=== PATIENT | male | born 1975 | race Caucasian/White ===

== ENCOUNTER 2019-10-24 17:53 | Emergency (ER) | payer OTHER, SELFPAY ==
[2019-10-24 18:01] VITALS: BP 141/87; PULSE 67; RESP 12; TEMP 37; O2SAT 96
--- NOTE | 2019-10-24 18:26 | ED_ITS ---
HPI - Skin/Abscess/Foreign Bdy General Chief complaint: Skin/Abscess/Foreign Body Stated complaint: LEFT HAND BIG SPLINTER Time Seen by Provider: 10/24/19 18:26 Source: patient Mode of arrival: Ambulatory Limitations: no limitations History of Present Illness HPI narrative: The patient was at home sanding his boat about 1 hour prior to arrival. Unfortunately he injected a splinter under the nail bed of his left t humb. He briefly attempted to remove the splint himself. With no locking came here for help. He has focal pain, no numbness, and no active bleeding. 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 His tetanus is up-to-date. He is left-hand dominant. Review of Systems Review of Systems ROS Unobtainable: All systems reviewed & are unremarkable except as noted in HPI and below Constitutional Constitutional: Denies chills, Denies fatigue, Denies fever(s) and Denies headache(s) ENT Ears, Nose, Mouth, and Throat: Denies headache(s) Integumentary/Breasts Skin/Breast: Denies erythema, Denies rash and Reports wounds Neurologic Neurologic: Denies headache(s), Denies focal weakness and Denies sensory deficit Endocrine Endocrine: Denies fatigue Patient History Medical History (Updated 10/24/19 @ 19:05 by Joseph Hawkins MD) Pacemaker (Acute) Vagus nerve disease or syndrome (Acute) Social History Smoking Status: Never smoker Smoking Status: Never smoker alcohol intake frequency: 0-2 drinks per day Substance Use Type: does not use Exam Initial Vital Signs Initial Vital Signs: Vital Signs Temperature 98.6 F 10/24/19 18:01 Pulse Rate 67 10/24/19 18:01 Respiratory Rate 12 10/24/19 18:01 Blood Pressure 141/87 H 10/24/19 18:01 Pulse Oximetry 96 10/24/19 18:01 Const General: cooperative, well developed, No anxious and No ill appearing Nutritional Appearance: well nourished Skin General: no rashes or lesions noted Neuro General: alert, oriented x3 and no focal motor deficits Speech: speech normal Sensory Exam: no sensory deficits noted Extrem General: full ROM Other: Splinter foreign body under the radial side of his left thumb bed. The splinter extends the full length of the nail. No interest site is underneath the distal nail. No erythema or swelling. No bleeding. Procedures Foreign Body OTHER Site: left and hand (Left thumbnail.) Description of foreign body: other (Splinter) Sedation/Analgesia: other (Lidocaine 2% 0.5 mL injected locally.) Technique: manual removal Confirmed by:: direct visualization Complications: none Course Course Course Narrative: The wound was soaked in warm water with Betadine, a dressing was applied by his nurse prior to discharge. Orders Ordered: Discontinued Medications Lidocaine HCl (Xylocaine 1%) 10 ml INJ NOW ONE Stop: 10/24/19 18:31 Vital Signs Vital signs: Vital Signs - 8 hr 10/24/19 18:01 Temperature 98.6 F Pulse Rate 67 Respiratory Rate 12 Blood Pressure 141/87 H Pulse Oximetry 96 Discharge Plan Departure Patient Disposition: Home Clinical Impression: Splinter of finger Discharge Date/Time: 10/24/19 18:55 Instructions: DI for Splinter Removal Activity Restrictions/Additional Instructions: Soak the injured finger in warm water and Epson salts 2 times daily for the next couple days. Return the ER if you developing significant redness or swelling to the injured f marv.
[2019-10-24 18:55] VITALS: BP 133/81; PULSE 65; RESP 13; O2SAT 98
[2019-10-24] MEDS: LIDOCAINE 2% INJ MDV 20 ML (19:03)
== END 2019-10-24 18:55 | disposition home or self-care (01) ==
PROVIDERS: Emergency Provider Emergency Medicine
DX: S60.352A Superficial foreign body of left thumb, initial encounter (principal); W45.8XXA Other foreign body or object entering through skin, initial encounter
CPT/HCPCS: 99281; 99282